=== PATIENT | female | born 1970 | race African-American/Black ===

== ENCOUNTER 2017-05-10 20:01 | Emergency (ER) | payer MEDICAID ==
[~2017-05-10] VITALS: Ht 170.2 cm; Wt 68.0 kg
[2017-05-10] MEDS ORDERED: HYDROCODONE/ACETAMINOPHEN 5/325MG TABLET PO ONE (21:45)
[2017-05-11 01:48] VITALS: BP 125/87
== END 2017-05-11 01:52 | disposition home or self-care (01) ==
LOC: ER 20:01
DX: M25.562 Pain in left knee (principal); M25.572 Pain in left ankle and joints of left foot; R10.9 Unspecified abdominal pain; V03.10XA Pedestrian on foot injured in collision with car, pick-up truck or van in traffic accident, initial encounter; Y93.01 Activity, walking, marching and hiking; Y92.488 Other paved roadways as the place of occurrence of the external cause; K02.9 Dental caries, unspecified; D25.9 Leiomyoma of uterus, unspecified; Z88.0 Allergy status to penicillin
CPT/HCPCS: 73560; 73630; 74176; 81025; 99284; J7040; Z7610

== ENCOUNTER 2017-07-20 10:17 | Emergency (ER) | payer MEDICAID ==
[~2017-07-20] VITALS: Ht 160 cm; Wt 68.0 kg
[2017-07-20] MEDS ORDERED: IBUPROFEN 600MG TABLET PO ONE (11:00)
[2017-07-20 11:07] VITALS: BP 119/80
== END 2017-07-20 12:41 | disposition home or self-care (01) ==
LOC: ER 10:51
DX: S43.401A Unspecified sprain of right shoulder joint, initial encounter (principal); S63.91XA Sprain of unspecified part of right wrist and hand, initial encounter; Z88.0 Allergy status to penicillin; V43.62XA Car passenger injured in collision with other type car in traffic accident, initial encounter; Y93.89 Activity, other specified; Y92.488 Other paved roadways as the place of occurrence of the external cause
CPT/HCPCS: 73030; 73130; 81025; 99284

== ENCOUNTER 2018-07-30 16:49 | Inpatient (IN) | payer MEDICAID ==
[~2018-07-30] VITALS: Ht 167.6 cm; Wt 73.5 kg
[2018-07-30] MEDS ORDERED: ALBUTEROL (0.083%) 2.5MG/3ML NEB HHN STA ×2 (17:16→18:34)
[2018-07-30] MEDS ORDERED: IPRATROPIUM BROMIDE (0.02%) 0.5MG/2.5ML NEB HHN STA ×2 (17:16→18:34)
[2018-07-30] MEDS ORDERED: PREDNISONE 20MG TABLET PO STA (18:34)
[2018-07-30 19:43] LABS: BASOPHILS % 0.3 % (0.0-2.0); EOSINOPHILS % 0.8 % (0.0-5.0); HEMATOCRIT. 43.1 % (36.0-48.0); HEMOGLOBIN. 14.4 g/dL (12.0-16.0); LYMPHOCYTES % 15.9 % (20.0-50.0); MEAN CORPUSCULAR HEMOGLOBIN 30.5 pg (28.0-32.0); MEAN PLATELET VOLUME 9.8 fl (7.4-10.4); MONOCYTES % 6.4 % (2.0-8.0); NEUTROPHILS % 76.6 % (40.0-76.0); PLATELET 206 x1000/uL (130-400); RED BLOOD CELL COUNT 4.73 mill/uL (4.2-5.4); RED CELL DISTRIBUTION WIDTH 12.6 % (11.6-14.6)
[2018-07-30] MEDS ORDERED: SODIUM CHLORIDE 0.9% 1,000 ML IV ONE (19:45)
[2018-07-30 19:48] LABS: CHLORIDE 104 mEq/L (98-107)
[2018-07-30 20:35] LABS: BG BASE EXCESS -1.3 mmol/L (-2.0-2.0); BG CARBOXYHEMOGLOBIN 0.6 % (0.5-1.5); BG DEOXYHEMOGLOBIN 5.6 % (0.0-5.0); BG FRACTION INSPIRED OXYGEN 28; BG HCO3 ACT 22.8 mmol/L (22.0-26.0); BG METHEMOGLOBIN 0.2 % (0.0-1.5); BG OXYGEN SATURATION 94.4 % (92.0-98.5); BG OXYHEMOGLOBIN 93.6 % (94.0-97.0); BG PCO2 36.4 mmHg (35.0-45.0); BG PH 7.415 (7.350-7.450); BG PO2 71.4 mmHg (75.0-100.0); BG SAMPLE SITE RIGHT RADIAL; BG TOTAL HEMOGLOBIN 13.8 g/dL (12.0-18.0); BG VENT MODE NASAL CANNULA
[2018-07-30] MEDS ORDERED: MAGNESIUM/ALUMINUM HYDROXIDE/SIMETHICONE 30ML UDC PO PRN (21:30)
[2018-07-30] MEDS ORDERED: HYDROMORPHONE HCL/PF 2MG/ML CPJ IV PRN (21:30)
[2018-07-30] MEDS ORDERED: HYDROCODONE/ACETAMINOPHEN 5/325MG TABLET PO PRN (21:30)
[2018-07-30] MEDS ORDERED: NA PHOS,M-B/NA PHOS,DI-BA ENEMA 118ML PR PRN (21:30)
[2018-07-30] MEDS ORDERED: DOCUSATE SODIUM 100MG CAPSULE PO PRN (21:30)
[2018-07-30] MEDS ORDERED: GUAIFENESIN 200MG/10ML SUGAR FREE UDC PO PRN (21:30)
[2018-07-30] MEDS ORDERED: IPRATROPIUM/ALBUTEROL 0.5-3(2.5)MG/3ML NEB INH PRN (21:30)
[2018-07-30] MEDS ORDERED: CLONIDINE 0.1MG TABLET PO PRN (21:30)
[2018-07-30] MEDS ORDERED: ONDANSETRON HCL 4MG/2ML INJ IV PRN (21:30)
[2018-07-30] MEDS ORDERED: LORAZEPAM 2MG/ML CPJ IV PRN (21:30)
[2018-07-30] MEDS ORDERED: DIPHENHYDRAMINE 50MG/ML VIAL IV PRN (21:30)
[2018-07-30] MEDS ORDERED: ACETAMINOPHEN 325MG TABLET PO PRN (21:30)
[2018-07-30] MEDS: METHYLPREDNISOLONE SOD SUCC 125 MG/2 ML VIAL IV SCH (21:45)
[2018-07-30] MEDS: SODIUM CHLORIDE 0.9% INJ 3ML FLUSH IVF SCH (22:00)
[2018-07-31] VITALS (8 sets, daily range): BP systolic 110–130; BP diastolic 56–85
[2018-07-31] MEDS: METHYLPREDNISOLONE SOD SUCC 125 MG/2 ML VIAL IV SCH ×3 (04:16→18:03)
[2018-07-31] MEDS ORDERED: HYDROMORPHONE HCL/PF 2MG/ML CPJ IV PRN (05:45)
[2018-07-31] MEDS: SODIUM CHLORIDE 0.9% INJ 3ML FLUSH IVF SCH ×2 (06:55→21:17)
[2018-07-31] MEDS ORDERED: DOCUSATE SODIUM 100MG CAPSULE PO PRN (10:45)
[2018-07-31] MEDS ORDERED: MAGNESIUM/ALUMINUM HYDROXIDE/SIMETHICONE 30ML UDC PO PRN (10:45)
[2018-07-31] MEDS ORDERED: IPRATROPIUM/ALBUTEROL 0.5-3(2.5)MG/3ML NEB INH PRN (10:45)
[2018-07-31] MEDS ORDERED: GUAIFENESIN 200MG/10ML SUGAR FREE UDC PO PRN (10:45)
[2018-07-31] MEDS ORDERED: ACETAMINOPHEN 325MG TABLET PO PRN (10:45)
[2018-07-31] MEDS ORDERED: HYDROCODONE/ACETAMINOPHEN 5/325MG TABLET PO PRN (10:45)
[2018-07-31] MEDS ORDERED: CLONIDINE 0.1MG TABLET PO PRN (10:45)
[2018-07-31] MEDS ORDERED: ONDANSETRON HCL 4MG/2ML INJ IV PRN (10:45)
[2018-07-31] MEDS ORDERED: LORAZEPAM 2MG/ML CPJ IV PRN (10:45)
[2018-07-31] MEDS ORDERED: DIPHENHYDRAMINE 50MG/ML VIAL IV PRN (10:45)
[2018-07-31 11:58] LABS: BASOPHILS % 0.1 % (0.0-2.0); HEMATOCRIT. 39.6 % (36.0-48.0); HEMOGLOBIN. 13.4 g/dL (12.0-16.0); LYMPHOCYTES % 16.8 % (20.0-50.0); MEAN CORPUSCULAR HEMOGLOBIN 30.7 pg (28.0-32.0); MEAN CORPUSCULAR VOLUME 90.9 fL (81.0-99.0); MEAN PLATELET VOLUME 9.6 fl (7.4-10.4); MONOCYTES % 10.4 % (2.0-8.0); NEUTROPHILS % 72.7 % (40.0-76.0); PLATELET 210 x1000/uL (130-400); RED BLOOD CELL COUNT 4.36 mill/uL (4.2-5.4); RED CELL DISTRIBUTION WIDTH 12.6 % (11.6-14.6)
[2018-07-31] MEDS ORDERED: LEVOFLOXACIN 500MG PREMIX 100 ML IV SCH (12:00)
[2018-07-31 12:47] LABS: CHLORIDE 108 mEq/L (98-107)
[2018-07-31 12:56] LABS: T4 FREE 0.82 ng/dL (0.76-1.46)
[2018-07-31] MEDS ORDERED: SODIUM CHLORIDE 0.9% INJ 3ML FLUSH IVF SCH (14:00)
[2018-07-31] MEDS: LEVOFLOXACIN 500MG PREMIX 100 ML IV SCH (14:02)
[2018-07-31] MEDS: IPRATROPIUM/ALBUTEROL 0.5-3(2.5)MG/3ML NEB HHN SCH ×2 (15:35→19:47)
[2018-07-31] MEDS: NICOTINE 7MG PATCH TD SCH (16:33)
[2018-07-31] MEDS: GUAIFENESIN 600MG ER TABLET PO SCH (20:14)
[2018-08-01] VITALS: BP 107/70
[2018-08-01] MEDS: METHYLPREDNISOLONE SOD SUCC 125 MG/2 ML VIAL IV SCH ×3 (00:07→11:53)
[2018-08-01] MEDS: IPRATROPIUM/ALBUTEROL 0.5-3(2.5)MG/3ML NEB HHN SCH ×4 (00:48→11:42)
[2018-08-01 04:00] VITALS: BP 110/88
[2018-08-01] MEDS: SODIUM CHLORIDE 0.9% INJ 3ML FLUSH IVF SCH (05:33)
[2018-08-01 07:52] VITALS: BP 126/87
[2018-08-01] MEDS: GUAIFENESIN 600MG ER TABLET PO SCH (08:53)
[2018-08-01] MEDS: NICOTINE 7MG PATCH TD SCH (08:54)
[2018-08-01 11:18] VITALS: BP 117/72
[2018-08-01 11:30] VITALS: BP 117/72
[2018-08-01] MEDS: LEVOFLOXACIN 500MG PREMIX 100 ML IV SCH (11:52)
== END 2018-08-01 13:37 | disposition home or self-care (01) | DRG 133 ==
LOC: ER 16:49 → 6WST 21:05 → ENRESERV 07-31 03:46 → ER 07-31 05:40
PROVIDERS: ADMIT Internal Medicine; ATTEND Internal Medicine
DX: J96.01 Acute respiratory failure with hypoxia (principal); F17.210 Nicotine dependence, cigarettes, uncomplicated; Z88.0 Allergy status to penicillin; Z82.5 Family history of asthma and other chronic lower respiratory diseases
CPT/HCPCS: 36415; 36600; 71045; 82375; 82805; 84439; 84443; 93005; 94640; 96361; 96374; 96376; 99285; J1956; J2930; J7030; J7050; J7512; J7611; J7620

== ENCOUNTER 2021-12-17 00:30 | Emergency (ER) | payer MEDICAID ==
[~2021-12-17] VITALS: Ht 170.2 cm; Wt 80.8 kg
[2021-12-17 00:54] VITALS: BP 116/89
[2021-12-17] MEDS ORDERED: IBUPROFEN 800MG TABLET PO ONE (01:30)
[2021-12-17] MEDS ORDERED: IBUP-2030 MT (03:21)
== END 2021-12-17 04:10 | disposition home or self-care (01) ==
LOC: ER 00:30
DX: S01.511A Laceration without foreign body of lip, initial encounter (principal); S00.81XA Abrasion of other part of head, initial encounter; S80.02XA Contusion of left knee, initial encounter; S80.01XA Contusion of right knee, initial encounter; S80.11XA Contusion of right lower leg, initial encounter; Z88.0 Allergy status to penicillin; W01.0XXA Fall on same level from slipping, tripping and stumbling without subsequent striking against object, initial encounter; Y93.89 Activity, other specified; Y92.511 Restaurant or cafe as the place of occurrence of the external cause
CPT/HCPCS: 73562; 73590; 99284

== ENCOUNTER 2022-12-07 20:38 | Emergency (ER) | payer MEDICAID ==
[~2022-12-07] VITALS: Ht 170.2 cm; Wt 76.5 kg
[~2022-12-07 20:38] MED LIST: IBUP-2030 MT
[2022-12-07] MEDS ORDERED: OFLO5DRO4 RIGHT EAR (22:53)
[2022-12-07] MEDS ORDERED: IBUP-2029 MT (22:53)
[2022-12-07] MEDS ORDERED: AMOX-494 MT (22:53)
[2022-12-07] MEDS ORDERED: MUPI22OI2 TP (22:53)
[2022-12-07 23:12] VITALS: BP 130/88
== END 2022-12-07 23:14 | disposition home or self-care (01) ==
LOC: ER 20:43
DX: S00.411A Abrasion of right ear, initial encounter (principal); H66.91 Otitis media, unspecified, right ear; X58.XXXA Exposure to other specified factors, initial encounter; Y93.89 Activity, other specified; Y92.89 Other specified places as the place of occurrence of the external cause; Y99.8 Other external cause status; Z88.0 Allergy status to penicillin
CPT/HCPCS: 99281